=== PATIENT | male | born 1945 | race Caucasian/White ===

== ENCOUNTER 2019-06-10 11:45 | Outpatient (CLI) | payer MEDICARE, OTHER, SELFPAY ==
[2019-06-10 13:14] LABS: Anion Gap 9.7 mmol/L (3-11); BUN 21 mg/dL (7-18); CO2 27.3 mmol/L (21.0-32.0); CREATININE 1.08 mg/dL (0.70-1.30); Calcium 9.3 mg/dL (8.5-10.1); Calculated LDL 111 mg/dL; Chloride 102 mmol/L (98-107); Cholesterol 199 mg/dL (<200); Glucose 117 mg/dL (74-106); HDL Cholesterol 77 mg/dL (40-60); Potassium 4.5 mmol/L (3.5-5.1); Sodium 139 mmol/L (136-145); Triglyceride 58 mg/dL (<150)
== END 2019-06-10 12:05 ==
PROVIDERS: PCP Internal Medicine; Visit Provider Internal Medicine
DX: I10 Essential (primary) hypertension (principal)
CPT/HCPCS: 36415; 80048; 80061

== ENCOUNTER 2021-01-12 02:02 | Outpatient (CLI) | payer MEDICARE, OTHER, SELFPAY ==
--- NOTE | 2021-01-12 08:00 | DI.CT_ITS ---
Exam(s) CT HEAD WO EXAM: CT HEAD WO CLINICAL HISTORY: memory loss,COGNITIVE COMPLAINTS,R41.9. TECHNIQUE: Imaging Protocol: Axial computed tomography images with coronal and sagittal reformatted images were created and reviewed COMPARISON: No exams were available for comparison FINDINGS: Ventricles and Extra axial spaces: Normal in size and morphology for the patient's age. Hemorrhage: None. Cerebral parenchyma: Normal. No significant atrophy or visible white matter changes. Midline shift: None. Brainstem/Cerebellum: Normal. Calvarium: Normal. Visualized Paranasal sinuses/Mastoids: Clear. Soft Tissues: Unremarkable. IMPRESSION: No acute intracranial process. RADIATION DOSE DELIVERED: 709.66mGy.cm Total DLP DATA REPOSITORY: All CT scans at this facility are submitted to the National Radiology Data Registry (NRDR) Dose Index Registry (DIR) with the [employer] ([employer]). RADIATION OPTIMIZATION: All CT scans at this facility use at least one of these dose optimization te chniques: automated exposure control; mA and/or kV adjustment per patient size (includes targeted exa ms where dose is matched to clinical indication); or iterative reconstruction.
== END 2021-01-12 02:22 ==
PROVIDERS: PCP Internal Medicine; Visit Provider Internal Medicine
DX: R41.3 Other amnesia (principal); R41.9 Unspecified symptoms and signs involving cognitive functions and awareness
CPT/HCPCS: 70450

== ENCOUNTER → 2021-02-13 08:48 | Outpatient (BNVA) | payer MEDICARE, OTHER, SELFPAY | PROVIDERS: PCP Internal Medicine; Referring Provider Internal Medicine; Visit Provider Nurse Practitioner Adult Health | DX: R41.3 Other amnesia (principal); I10 Essential (primary) hypertension; F41.9 Anxiety disorder, unspecified | CPT/HCPCS: 99204; 99205; G2212 ==

== ENCOUNTER 2021-02-14 01:35 | Outpatient (CLI) | payer MEDICARE, OTHER, SELFPAY ==
--- NOTE | 2021-02-14 15:02 | DI.RAD_ITS ---
Exam(s) XR EYE FOREIGN BODY EXAM: XR EYE FOREIGN BODY INDICATION: Clearance for MRI - hx metal fragment exposure FOREIGN BODY EYE,T15.90XA. COMPARISON: No exams were available for comparison TECHNIQUE: 2D digital imaging was performed. FINDINGS: No orbital foreign bodies are seen. There is no evidence of fracture. No suspicious bony lesions. No sinus air-fluid levels. IMPRESSION: No orbital foreign body. DATA REPOSITORY: RADIATION DOSE DELIVERED:
== END 2021-02-14 01:55 ==
PROVIDERS: PCP Internal Medicine; Visit Provider Nurse Practitioner Adult Health
DX: T15.90XA Foreign body on external eye, part unspecified, unspecified eye, initial encounter (principal); R41.3 Other amnesia; Z87.820 Personal history of traumatic brain injury; X58.XXXA Exposure to other specified factors, initial encounter; E78.00 Pure hypercholesterolemia, unspecified; I10 Essential (primary) hypertension; R73.01 Impaired fasting glucose; R41.9 Unspecified symptoms and signs involving cognitive functions and awareness; E55.9 Vitamin D deficiency, unspecified; F41.9 Anxiety disorder, unspecified
CPT/HCPCS: 36415; 80053; 80061; 82306; 85027; 70030; 82607; 84443; 86140

== ENCOUNTER 2021-02-14 04:03 | Outpatient (CLI) | payer MEDICARE, OTHER, SELFPAY ==
[2021-02-14 14:45] LABS: MCH 31.9 pg (27.0-33.0); MCV 91.1 fL (80-95); MPV 9.2 fL (8.0-11.0); Platelet Count 230 10^3/uL (130-400); RBC 4.39 10^6/uL (4.36-5.78); RDW 12.6 % (11.8-14.1); RDW-SD 42.4 fL
[2021-02-14 15:44] LABS: ALT 25 U/L (16-63); AST 20 U/L (15-37); Alkaline Phosphatase 73 U/L (46-116); Anion Gap 10.9 mmol/L (3-11); BUN 22 mg/dL (7-18); Bilirubin, Total 0.8 mg/dL (0.2-1.0); CO2 26.1 mmol/L (21.0-32.0); CREATININE 1.2 mg/dL (0.70-1.30); Calcium 8.8 mg/dL (8.5-10.1); Calculated LDL 106 mg/dL (<100); Chloride 101 mmol/L (98-107); Cholesterol 203 mg/dL (<200); Estimated GFR 59.18 (mL/min/1.73m2); Glucose 121 mg/dL (74-106); HDL Cholesterol 77 mg/dL (40-60); Potassium 4.1 mmol/L (3.5-5.1); Sodium 138 mmol/L (136-145); TSH 1.78 uIU/mL (0.36-3.74); Total Protein 7.3 g/dL (6.4-8.2); Triglyceride 101 mg/dL (<150); Vitamin B12 571 pg/mL (193-986)
[2021-02-14 15:59] LABS: C-Reactive Protein < 0.05 mg/dL (0.0-0.3)
[2021-02-16 01:27] LABS: Vitamin D 25 Total 41.2 ng/mL (30-100)
== END 2021-02-14 04:04 | disposition home or self-care (01) ==
PROVIDERS: PCP Internal Medicine; Visit Provider Internal Medicine
DX: E78.00 Pure hypercholesterolemia, unspecified (principal); I10 Essential (primary) hypertension; R41.9 Unspecified symptoms and signs involving cognitive functions and awareness; R73.01 Impaired fasting glucose; E55.9 Vitamin D deficiency, unspecified; F41.9 Anxiety disorder, unspecified
CPT/HCPCS: 36415; 80053; 80061; 82306; 85027; 82607; 84443; 86140

== ENCOUNTER → 2021-02-28 10:03 | Outpatient (BNVA) | payer MEDICARE, OTHER, SELFPAY | PROVIDERS: PCP Internal Medicine; Referring Provider Internal Medicine; Visit Provider Nurse Practitioner Adult Health | DX: G30.1 Alzheimer's disease with late onset (principal); F02.80 Dementia in other diseases classified elsewhere, unspecified severity, without behavioral disturbance, psychotic disturbance, mood disturbance, and anxiety | CPT/HCPCS: 99213; 99215 ==

== ENCOUNTER → 2021-04-26 10:11 | Outpatient (BNVA) | payer MEDICARE, OTHER, SELFPAY | PROVIDERS: PCP Internal Medicine; Referring Provider Internal Medicine; Visit Provider Psychiatry & Neurology Neurology | DX: G30.1 Alzheimer's disease with late onset (principal); F02.80 Dementia in other diseases classified elsewhere, unspecified severity, without behavioral disturbance, psychotic disturbance, mood disturbance, and anxiety | CPT/HCPCS: 99213 ==

== ENCOUNTER → 2021-07-11 08:54 | Outpatient (BNVA) | payer MEDICARE, OTHER, SELFPAY | PROVIDERS: PCP Internal Medicine; Visit Provider Psychiatry & Neurology Neurology | DX: G30.1 Alzheimer's disease with late onset (principal); F02.80 Dementia in other diseases classified elsewhere, unspecified severity, without behavioral disturbance, psychotic disturbance, mood disturbance, and anxiety; F41.9 Anxiety disorder, unspecified | CPT/HCPCS: 99213 ==

== ENCOUNTER → 2021-08-15 08:41 | Outpatient (BNVA) | payer MEDICARE, OTHER, SELFPAY | PROVIDERS: PCP Internal Medicine; Referring Provider Internal Medicine; Visit Provider Nurse Practitioner Adult Health | DX: G30.1 Alzheimer's disease with late onset (principal); F02.80 Dementia in other diseases classified elsewhere, unspecified severity, without behavioral disturbance, psychotic disturbance, mood disturbance, and anxiety | CPT/HCPCS: 99214 ==

== ENCOUNTER 2021-12-31 20:02 | Emergency (ER) | payer MEDICARE, OTHER, SELFPAY ==
[2021-12-31] VITALS (69 sets, daily range): BP systolic 109–131; BP diastolic 64–80; PULSE 82–94; RESP 12–31; TEMP 36.9–37; O2SAT 91–100
--- NOTE | 2021-12-31 20:00 | RT.EKG_ITS ---
APPROVED REPORT Exam: Resting ECG Reason for Exam: dizzy Patient Location: E HR:88 bpm ECG Measurements Heart Rate 88 AXIS OR 167 P 72 QRSd 104 QRS -43 QT 389 T 81 QTc 470 Conclusion Sinus rhythm...normal P axis, V-rate 60- 99 Incomplete RBBB and LAFB...axis(240,-40), S>R II III aVF Physician: Sinus rhythm, rate 88, incomplete right bundle branch block. No significant ST elevations or depressions. No evidence of STEMI. No prior EKG for comparison.
--- NOTE | 2021-12-31 20:10 | DI.CT_ITS ---
Exam(s) CT CHEST/ABD/PEL WO EXAM: CT CHEST/ABD/PEL WO CLINICAL HISTORY: syncope, fall, hit left ribs, chest compressions. TECHNIQUE: Imaging Protocol: Axial computed tomography images with coronal and sagittal reformatted images were created and reviewed CONTRAST MATERIAL: Intravenous: none Oral: None COMPARISON: No exams were available for comparison FINDINGS: CHEST: LUNGS: No infiltrates nor pleural effusions. No pneumothorax. No lung contusion. No significant fo maryam findings in the trachea and mainstem bronchi. MEDIASTINUM: No evidence of mediastinal hematoma. No hilar nor mediastinal adenopathy. Visualized t hyroid unremarkable. CARDIAC: Heart size is normal. There is no pericardial effusion.Diameter of the ascending thoracic a chen is 3.7 cm. Mid aortic arch diameter 2.7 cm. Proximal descending thoracic aorta diameter is inc reased at 3.1 cm. Diameter of the mid thoracic aorta is 2.8 cm. Diameter of the distal thoracic aor ta is 2.7 cm. OSSEOUS: There is nondisplaced fracture in the posterior aspect of the left 10th rib at the costotran sverse junction. Similar very subtle nondisplaced fracture of the posterior left rib of T11 also not ed.. ABDOMEN: There is no ascites. LIVER: No obvious focal hepatic laceration or other focal hepatic lesions evident on this noninfused study. GALLBLADDER/BILIARY: No obvious gallbladder pathology. CBD is not dilated. PANCREAS: No evidence of obvious pancreatic mass nor dilatation of the pancreatic duct. SPLEEN: Spleen size normal. No evidence of obvious splenic laceration nor intrasplenic lesions. No perisplenic fluid ADRENALS: There are no significant adrenal masses. KIDNEYS: No calculi nor hydronephrosis. No obvious solid renal masses. Mild prominence of both ureter s entire length. No distal ureteral calculi nor obvious bladder mass evident. ABDOMINAL AORTA: Calcified but not significantly enlarged. LYMPH NODES: There is no retroperitoneal nor para-aortic adenopathy. ABDOMINAL WALL/GI: No evidence of significant anterior abdominal wall nor inguinal hernia. No evidence of bowel obstruction. No evidence of bowel wall nor mesenteric hematoma. PELVIS: LYMPH NODES: There is no intrapelvic nor inguinal adenopathy. GI: No evidence of appendicitis.Sigmoid diverticulosis. No evidence of acute diverticulitis. URINARY BLADDER: No masses nor calculi nor clots therein. REPRODUCTIVE: Prostate gland enlarged and indents the bladder base. Seminal vesicles unremarkable. OSSEOUS: No compression fractures of the vertebral bodies. There is an element of degenerative anter olisthesis of L4 upon L5, this related to facet arthropathy. IMPRESSION: 1. There are nondisplaced fractures of the posterior aspect of the left 10th and 11th ribs, these at the costotransverse junctions. 2. No evidence of focal lung findings, pneumothorax, or pleural effusion. 3. No evidence of significant injury in the abdomen pelvis. No free fluid. Extensive sigmoid diverticulosis incidentally noted.. No obvious acute diverticulitis. RADIATION DOSE DELIVERED: 873.03 mGy.cm Total DLP DATA REPOSITORY: All CT scans at this facility are submitted to the National Radiology Data Registry (NRDR) Dose Index Registry (DIR) with the [employer] ([employer]). RADIATION OPTIMIZATION: All CT scans at this facility use at least one of these dose optimization te chniques: automated exposure control; mA and/or kV adjustment per patient size (includes targeted exa ms where dose is matched to clinical indication); or iterative reconstruction.
[2021-12-31] MEDS: Normal Saline 1,000 ML 1000 ML IV (20:20)
[2021-12-31 20:23] LABS: Abs Immature Grans 0.04 10^3/uL (0.0-0.06); Absolute Basophil Count 0.06 10^3/uL (0.0-0.2); Absolute Eosinophil Count 0.03 10^3/uL (0.0-0.7); Absolute Lymphocyte Count 0.87 10^3/uL (1.2-3.4); Absolute Monocyte Count 1.46 10^3/uL (0.1-0.8); Absolute Neutrophil Count 7.53 10^3/uL (1.2-6.7); Basophils % 0.6; Eosinophils % 0.3; HCT 36.8 % (40.0-50.0); HGB 12.7 g/dL (13.5-17.5); Immature Grans % 0.4; Lymphocytes % 8.7; MCH 31.9 pg (27.0-33.0); MCHC 34.5 % (32.0-36.0); MCV 93 fL (80-95); MPV 9.2 fL (8.0-11.0); Monocytes % 14.6; Neutrophils % 75.4; Platelet Count 172 10^3/uL (130-400); RBC 3.98 10^6/uL (4.36-5.78); RDW 12.7 % (11.8-14.1); RDW-SD 42.9 fL; WBC 9.99 10^3/uL (4.4-10.8)
--- NOTE | 2021-12-31 20:26 | W.ED.GENAD ---
Discharge Plan Disposition Patient Disposition: HOME Condition: Good Discharge Details Clinical Impression: Syncope, Dehydration, KHRIS (acute kidney injury), Left rib fracture Primary Care Provider: Angella Faith ED Provider: Jose Guadalupe Pearce Home Meds and New Rx's Prescriptions: Continued donepezil 10 mg tablet 10 mg PO DAILY Qty: 90 3RF bupropion HCl [Wellbutrin XL] 300 mg tablet extended release 24 hr 300 mg PO QAM Qty: 90 3RF memantine 10 mg tablet 10 mg PO BID Qty: 180 3RF amlodipine 10 mg tablet 10 mg PO DAILY Qty: 90 3RF Discharge Instructions Instructions: Dehydration (ED), Syncope (ED) Additional Instructions: At this time your work-up is reassuring. I feel that your symptoms occurred secondary to being notably dehydrated. For the next 48 hours please stay well-hydrated, drink 10 to 12 cups of fluid per day. I would recommend water and electrolyte solutions. Take things easy, do not overly exert yourself over the next day or two. If you notice any worsening of your symptoms, or any new symptoms such as vomiting, diarrhea, fever, chills, shortness of breath, chest pain, numbness, weakness, or fainting , please return immediately to the emergency department for reevaluation. Please follow up with your primary care provider as soon as possible for reassessment and reevaluation. As always, it was a pleasure participating in your medical care today. Referrals: Angella Faith MD [Primary Care Provider] - Medical Decision Making This is a 76-year-old male with a past medical history of mild dementia, hypertension, dehydration in the past, who presents today after syncope. Patient mowed the lawn today, he may have had some alcohol and [facility] He got up out of his chair after sitting for a bit he had an episode of syncope. He may have struck his head. He then tried to get up a second time and passed out again shortly thereafter. Bystander CPR was initiated when he was sat upright and he was noticed to bradycardia down. Only 3-4 compressions were given total. When EMS arrived blood pressure and heart rate was stable however when he was sat upright again he again became near syncopal and his heart rate went down as did his blood pressure 2. He is not on any blood thinners. He was answering all questions appropriately to EMS. He does not recall the syncope but does state that he feels fine now. Family is at bedside. Patient does admit to some mild left-sided chest pain, but denies any neck pain, back pain, or abdominal pain. He denies any new numbness or tingling. No other complaints. Exam demonstrates normal neurologic assessment at this time. Notably dry mucous membranes, mild left-sided tenderness but no bruising or crepitus. No midline cervical thoracic or lumbar spine tenderness. Differential is highest for syncope/vasovagal event secondary to dehydration, however with his age and risk factors stroke bleed is also on the differential. Cardiac etiology is of concern too. We will rehydrate, monitor closely evaluate for these etiologies and reassess. 11:[address] imaging has returned. No evidence of significant abnormality. He does have a few small broken ribs on the left, but no pneumothorax or other significant abnormalities. He does have atherosclerotic disease, but no signs of acute stroke at this time. After 2-1/2 L of normal saline the patient is feeling much better. Initial lab demonstrate an elevated creatinine of 1.8, and normal troponin. Repeat labs after fluid rehydration demonstrate normalizing creatinine at 1.4, GFR is now up to 50%, repeat troponin normal. EKGs are stable and unchanged. No evidence of STEMI. Patient feels well, feels good to go home. Family is at bedside they will be helping him at home if needed. Symptoms at this time appear to be consistent with a vasovagal event secondary to dehydration. At this time symptoms appearing consistent with stroke, or significant cardiac dysrhythmia. Patient will be discharged home with family. Patient is able to ambulate well at time of discharge. Repeat exam demonstrates no evidence of acute neurologic defecit. I have extensively reviewed the treatment plan and discharge instructions with the patient and their family. I have addressed all patient concerns at this time. The patient and family was made aware of what symptoms to monitor for that would warrant a return to the emergency department. Discussed the plan with the patient and family, they demonstrate verbal understanding and agreement with our assessment and plan at this time. The documentation in this chart was dictated using [employer] dictation software. Please excuse any dictation errors. EKG 20: 10 Sinus rhythm, rate 88, incomplete right bundle branch block. No significant ST elevations or depressions. No evidence of STEMI. No prior EKG for comparison. FINDINGS: Brain: There is mild diffuse heterogeneity of the white matter attenuation, consistent with chronic white matter microangiopathic ischemic changes. There is mild diffuse cerebral atrophy present. There is no evidence of intracranial hemorrhage. There is no evidence of acute intracranial injury or other pathologic process. Cerebral ventricles: The ventricular system demonstrates mild diffuse compensatory enlargement. Paranasal sinuses: Mucoperiosteal thickening consistent with chronic sinusitis. Opacification of the ethmoid sinuses and air-fluid level within the left sphenoid sinus may represent acute on chronic sinusitis. Mastoid air cells: The mastoid aircells are normal. Orbital cavities: There is no evidence of retro-bulbar hemorrhage. There is no evidence of globe or lens injury. Bones/joints: The orbits are normal without evidence of fracture. The bony cranium shows no evidence of injury or other acute pathologic processes. Soft tissues: There may be a small scalp hematoma at the left frontal region. There may be a small scalp hematoma within the left occipital region. Other findings: There is no evidence of an acute ischemic event. IMPRESSION: 1. No evidence of an acute intracranial abnormality. 2. There is mild age-related atrophy and chronic white matter ischemic changes, with compensatory ventricular dilation. 3. Mucoperiosteal thickening consistent with chronic sinusitis. Opacification of the ethmoid sinuses and air-fluid level within the left sphenoid sinus may represent acute on chronic sinusitis. 4. There may be a small scalp hematoma at the left frontal region. There may be a small scalp hematoma within the left occipital region. FINDINGS: Bones/joints: There is no evidence of acute vertebral body element or posterior vertebral element fracture. The anterior posterior borders of the vertebral bodies are in good alignment. No evidence of acute subluxation. No evidence of acute compression fractures. Discs/Spinal canal/Neural foramina: There are moderate to severe degenerative changes within the discs of the of the cervical spine. There is sclerosis anterior and posterior osteophytes. Mild-tomoderate neurforaminal narrowing secondary to degenerative changes present greater on the left than the right. Lpli-dm-zugkbnbu narrowing of the central spinal canal secondary to degenerative changes. There is posterior ngmm-qb-tqsinywa bulging of the discs at C4-C5, C5-C6 and C6-C7. This likely is secondary to chronic degenerative disc disease a possibly limited acute disc injury cannot be totally excluded. The spinal canal and cord are otherwise normal. Lungs: Left apical pleural scarring present. The right lung is not imaged. Lymph nodes: Bilateral cervical lymphadenopathy present. Soft tissues: The prevertebal, paravertebral, pharyngeal, hypopharyngeal, and laryngeal soft tissue structures are unremarkable. IMPRESSION: 1. There is no evidence of acute vertebral body element or posterior vertebral element fracture. 2. The anterior posterior borders of the vertebral bodies are in good alignment. No evidence of acute subluxation. 3. There are moderate to severe degenerative changes within the discs of the of the cervical spine. There is sclerosis anterior and posterior osteophytes. 4. Zqon-jo-zoduusrz neurforaminal narrowing secondary to degenerative changes present greater on the left than the right. 5. Yeng-ep-kphjbehr narrowing of the central spinal canal secondary to degenerative changes. 6. There is posterior aowm-nt-qevvvtvs bulging of the discs at C4-C5, C5-C6 and C6-C7. This likely is secondary to chronic degenerative disc disease a possibly limited acute disc injury cannot be totally excluded. 7. Bilateral cervical lymphadenopathy present. Thank you for allowing us to participate in the care of your patient. Dictated and Authenticated by: Elvin Fermin MD 12/31/2021 9:43 PM Eastern Time ([place] & [place]) FINDINGS: Lungs: No infiltrates. No mass lesion or nodule seen. Mild right lung base dependent atelectasis. Pleural spaces: Unremarkable. No pneumothorax. No pleural effusion. Heart: Unremarkable. No cardiomegaly. No pericardial effusion. Lymph nodes: Unremarkable. No enlarged lymph nodes. Vasculature: Unremarkable. No aortic aneurysm. Bones/joints: Acute nondisplaced fracture of left posterior 10th and 11th ribs. No evidence of clavicular fracture. No evidence of scapular fracture. No evidence of sternal fracture. Degenerative changes in the spine. No evidence of fracture. Soft tissues: Unremarkable. IMPRESSION Acute nondisplaced fracture of left posterior 10th and 11th ribs. No pneumothorax. No evidence of lung injur FINDINGS: Liver: Normal. No mass. Gallbladder and bile ducts: Normal. No calcified stones. No ductal dilation. Pancreas: Normal. No ductal dilation. Spleen: Normal. No splenomegaly. Adrenal glands: Normal. No mass. Kidneys and ureters: Normal. No hydronephrosis. Stomach and bowel: Colonic diverticulosis. No findings to suggest acute diverticulitis. No areas of bowel wall thickening in the colon. No evidence of obstruction. Appendix: No evidence of appendicitis. Intraperitoneal space: No free fluid or fluid collections. No inflammatory changes. No free air. Vasculature: Unremarkable. No abdominal aortic aneurysm. Lymph nodes: Unremarkable. No enlarged lymph nodes. Urinary bladder: Unremarkable as visualized. Reproductive: Unremarkable as visualized. Bones/joints: Facet arthropathy at multiple levels. 5 mm degenerative anterolisthesis of L4 over L5. Degenerative changes are seen at L4-L5 and L5-S1 level. Soft tissues: Unremarkable. IMPRESSION: 1. No evidence of visceral organ or vascular injury. No hemoperitoneum.. 2. Colonic diverticulosis.No pericolonic inflammatory changes to suggest acute diverticulitis. Thank you for allowing us to participate in the care of your patient. Dictated and Authenticated by: Lana Null MD 12/31/2021 9:34 PM Eastern Time ([place] & [place]) FINDINGS: Bones/joints: Vertebral body heights are within normal limits. No evidence of compression fracture. No evidence of acute fracture. Discs/Spinal canal/Neural foramina: No disc protrusion or extrusion. Soft tissues: Unremarkable. IMPRESSION: Vertebral body heights are within normal limits. No evidence of compression fracture. No evidence of acute fracture. FINDINGS: Bones/joints: Vertebral body heights are within normal limits. No evidence of compression fracture. No evidence of acute fracture. Discs/Spinal canal/Neural foramina: 5 mm degenerative anterolisthesis of L4 over L5 with bilateral facet arthropathy with moderate bilateral neural foraminal narrowing. Degenerative disc disease at L5-S1 with loss of disc height and 4 mm posterior osteophytosis. No significant canal stenosis. No disc protrusion or extrusion. Soft tissues: Unremarkable. IMPRESSION: Vertebral body heights are within normal limits. No evidence of compression fracture. No evidence of acute fracture. Thank you for allowing us to participate in the care of your patient. Dictated and Authenticated by: Lana Null MD 12/31/2021 9:40 PM Eastern Time ([place] & [place]) HPI General Date/Time Provider Initiated Documentation: 12/31/21 20:10. HPI Narrative: This is a 76-year-old male with a past medical history of mild dementia, hypertension, dehydration in the past, who presents today after syncope. Patient mowed the lawn today, he may have had some alcohol and was currently at a backyard [facility]. He got up out of his chair after sitting for a bit he had an episode of syncope. He may have struck his head. He then tried to get up a second time and passed out again shortly thereafter. Bystander CPR was initiated when he was sat upright and he was noticed to bradycardia down. Only 3-4 compressions were given total. When EMS arrived blood pressure and heart rate was stable however when he was sat upright again he again became near syncopal and his heart rate went down as did his blood pressure 2. He is not on any blood thinners. He was answering all questions appropriately to EMS. He does not recall the syncope but does state that he feels fine now. Family is at bedside. Patient does admit to some mild left-sided chest pain, but denies any neck pain, back pain, or abdominal pain. He denies any new numbness or tingling. No other complaints. Related Data Home Medications Medication Instructions Recorded Confirmed amlodipine 10 mg tablet 10 mg PO DAILY #90 tab-caps 12/02/20 12/31/21 donepezil 10 mg tablet 10 mg PO DAILY #90 tabs 04/26/21 12/31/21 memantine 10 mg tablet 10 mg PO BID #180 tabs 08/15/21 12/31/21 bupropion HCl 300 mg 24 hr tablet, 300 mg PO QAM #90 tabs 12/26/21 12/31/21 extended release (Wellbutrin XL) Previous Rx's Medication Instructions Recorded amlodipine 10 mg tablet 10 mg PO DAILY #90 tab-caps 12/02/20 donepezil 10 mg tablet 10 mg PO DAILY #90 tabs 04/26/21 memantine 10 mg tablet 10 mg PO BID #180 tabs 08/15/21 bupropion HCl 300 mg 24 hr tablet, 300 mg PO QAM #90 tabs 12/26/21 extended release (Wellbutrin XL) Allergies Allergy/AdvReac Type Severity Reaction Status Date / Time SB Inhibitors Allergy Intermediate Swelling/Ed Verified 12/31/21 20:16 taniya Sulfa (Sulfonamide Allergy Unknown rash Verified 12/31/21 20:16 Antibiotics) General Stated Complaint: Dizzy/Sync CAROL: 2 Review of Systems All systems reviewed & are unremarkable except as noted in HPI and below PFSH All Active Problems (Updated 12/31/21 @ 23:47 by Jose Guadalupe Pearce DO) Syncope (Chronic) Dehydration (Acute) KHRIS (acute kidney injury) (Acute) Left rib fracture (Acute) 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 Surgical History H/O left cataract extraction 09/21/20 with insertion of intraocular lens [facility] [place] [facility] Family History Mother Hyperlipidemia Hypothyroid Sister Parathyroid abnormality Hyperlipidemia Brother Hyperlipidemia Hypothyroid Father Lung cancer Social History Smoking/Tobacco Use Status: Former Tobacco Use Tobacco: How many years used: 4 Smoking risk assessment performed?: Yes Alcohol Intake: current Alcohol Intake frequency: 0-2 drinks per day Alcohol type: wine Drug use: Never Substance use type: does not use Household members: spouse Housing: house Number of Children: 2 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[employer] - [employer] What is your relationship status?: How often do you talk on the phone with friends or family?: three or more times per week Panel score (0-1 are the most socially isolated patients): 2 What type of physical activity do you participate in: walking Seatbelt use: always Drive intox or ride w/intox driver wheelchair: No Working smoke detector in home: Yes Carbon monox detector in home: Yes Do you feel safe at home: Yes Do you feel safe in your relationship?: Yes Exam Narrative Exam Narrative: 1.Const: Well-nourished, Well-developed, appearing stated age 2.Eyes: PERRL, no conjunctival injection, and symmetrical lids. 3.ENT: Atraumatic external nose and ears. Notably dry MM. Neck: Symmetric, trachea midline, No thyromegaly. There is no evidence of raccoon eyes, tran sign, CSF rhinorrhea, mastoid tenderness, cranial crepitus, hemotympanum, exophthalmos, or hyphema. Patient demonstrates intact dentition with no signs of tooth avulsion or fracture, no signs of jaw deformity, no evidence of a LeFort's fracture, with an intact palate, nose and orbital region. There is no evidence of a nasal septal hematoma. No proptosis. Jaw closes symmetrically. Airway is clear. 4.CVS: +S1/S2, No murmurs or gallops. Peripheral pulses 2+ and equal in all extremities. Brisk capillary refill in all extremities. 5.RESP: Unlabored respiratory effort. Clear to auscultation bilaterally. No wheezes rales or rhonchi. mild tenderness in the left lower ribs. 6.GI: Soft, Nontender/Nondistended, No hepatosplenomegaly. No guarding or rebound. 7.MSK: Normocephalic/Atraumatic, Extremities w/o deformity or ttp No cyanosis or clubbing, Normal movement of all extremities 8.Skin: Warm, Dry. No rashes or lesions. 9.Neuro: evp marketing II-XII grossly intact. Sensation grossly intact, no focal neurologic deficits. No dysdiadochokinesia or dysmetria. No facial asymmetry. 10.Psych: (AAO) x2. Appropriate mood and affect. Patient does believe it is 2 Course Vital Signs Vital signs: Vital Signs Temperature 37.0 C 12/31/21 20:04 Pulse 87 12/31/21 20:04 Respiratory Rate 19 12/31/21 20:04 Blood Pressure 130/76 12/31/21 20:04 Pulse Oximetry 100 12/31/21 20:04 Temperature 37.0 C 12/31/21 20:04 Temperature Source Skin 12/31/21 20:04 Pulse 87 12/31/21 20:04 Respiratory Rate 17 12/31/21 20:07 Respiratory Effort Non-Labored 12/31/21 20:07 Respiratory Depth Normal 12/31/21 20:07 Respiratory Pattern Normal 12/31/21 20:07 Blood Pressure 130/76 12/31/21 20:04 Blood Pressure Position Supine 12/31/21 20:04 Pulse Oximetry 100 12/31/21 20:04 Oxygen Delivery Method Room Air 12/31/21 20:04 Oxygen Flow Rate 0 12/31/21 20:04 Lab/Test Results Lab/Test Results: Laboratory Tests Range/Units 12/31/21 20:16 WBC (4.4-10.8) 10^3/uL 9.99 RBC (4.36-5.78) 10^6/uL 3.98 L Hgb (13.5-17.5) g/dL 12.7 L Hct (40.0-50.0) % 36.8 L MCV (80-95) fL 93 MCH (27.0-33.0) pg 31.9 MCHC (32.0-36.0) % 34.5 RDW (11.8-14.1) % 12.7 Plt Count (130-400) 10^3/uL 172 MPV (8.0-11.0) fL 9.2 Immature Gran % 0.4 Neutrophils % 75.4 Lymphocytes % 8.7 Monocytes % 14.6 Eosinophils % 0.3 Basophils % 0.6 Nucleated RBC % (0.0-0.3) % 0.0 Absolute Neutrophils (1.2-6.7) 10^3/uL 7.53 H Absolute Lymphocytes (1.2-3.4) 10^3/uL 0.87 L Absolute Monocytes (0.1-0.8) 10^3/uL 1.46 H Absolute Eosinophils (0.0-0.7) 10^3/uL 0.03 Absolute Basophils (0.0-0.2) 10^3/uL 0.06 PAWSS Have you Been Recently Intoxicated or Drunk Within the Last 30 days?: No Have you Ever Experienced Previous Episodes of Alcohol Withdrawal?: Unable to Obtain Have you ever Experienced Withdrawal Seizures?: Unable to Obtain Have you ever Experienced Delirium Tremens(DT)s?: Unable to Obtain Have you ever undergone Alcohol Rehabilitation Treatment (i.e, inpt ot outpatient treatment programs)?: Unable to Obtain Have you ever Experienced Blackouts?: Unable to Obtain Have you ever Combined Alcohol with other Downers within the last 90 days?: Unable to Obtain Have you ever Combined Alcohol with any other Substance of Abuse during the last 90 days?: Unable to Obtain Positive Blood Alcohol level on Presentation? [PCS.BAL]: Unable to Obtain Evidence of Increased Autonomic Activity (i.e. HR>120, tremor, sweating, agitation, nausea)?: Unable to Obtain Result: 0
[2021-12-31 20:39] LABS: ALT 18 U/L (16-63); AST 20 U/L (15-37); Albumin 3.6 g/dL (3.4-5.0); Alkaline Phosphatase 66 U/L (46-116); Anion Gap 11.3 mmol/L (3-11); BUN 27 mg/dL (7-18); Bilirubin, Total 0.7 mg/dL (0.2-1.0); CO2 22.7 mmol/L (21.0-32.0); CREATININE 1.8 mg/dL (0.70-1.30); Calcium 8.3 mg/dL (8.5-10.1); Chloride 101 mmol/L (98-107); ETHANOL BLOOD 12.3 mg/dL (<10); Estimated GFR 36.97 (mL/min/1.73m2); Glucose 101 mg/dL (74-106); Potassium 3.9 mmol/L (3.5-5.1); Sodium 135 mmol/L (136-145); Total Protein 6.8 g/dL (6.4-8.2); Troponin I < 50 ng/L (<or=60)
--- NOTE | 2021-12-31 20:42 | DI.CT_ITS ---
Exam(s) CT THORACIC LUMBAR SPINE REC EXAM: CT THORACIC LUMBAR SPINE REC CLINICAL HISTORY: fall, syncope, hit head and back, no focal tendern TECHNIQUE: COMPARISON: CT CT CHEST/ABD/PEL WO from 12/31/2021 FINDINGS: THORACIC SPINAL COLUMN: No evidence of acute fracture nor listhesis. No facet joint malalignment. N o acute compromise of the spinal canal. Multilevel calcification in the anterior longitudinal ligame nt in the lower thoracic spinal column is noted. LUMBOSACRAL SPINAL COLUMN: No evidence of acute fracture. There is degenerative anterolisthesis of L 4 upon L5, with approximately millimeters anterior slippage of L4 upon L5, this related to facet arth ropathy. There are no pars defects. Moderate disc space narrowing noted at this level. There is an element of bilateral foraminal stenosis at L4-5 level. Also moderate-severe disc space narrowing at L5-S1 levels. No listhesis at this level. Annular bulg ing noted IMPRESSION: No evidence of acute fractures in the thoracic and lumbar spinal columns. There is degenerative ante rolisthesis of L4 upon L5, as described above. This is related to facet arthropathy.
--- NOTE | 2021-12-31 21:15 | DI.CT_ITS ---
Exam(s) CT HEAD CERVICAL SPINE WO EXAM: CT HEAD CERVICAL SPINE WO CLINICAL HISTORY: fall, syncope, hit head, eval for bleed. TECHNIQUE: Imaging Protocol: Axial computed tomography images with coronal and sagittal reformatted images were created and reviewed COMPARISON: CT CT HEAD WO from 01/12/2021 FINDINGS: BRAIN: There are no prominent scalp hematomas. There are no skull fractures nor fluid in the visualized paranasal sinuses. There is no evidence of intracranial hemorrhage, mass effect, or shift of midline structures. There are no extra-axial fluid collections. The ventricles are not enlarged or shifted and there is no blo od within the ventricular system nor within the basal cisterns. Mucosal thickening noted in left maxillary sinus with no associated fluid level. Also some mucosal t hickening noted in the left sphenoid sinus. Frontal sinuses are clear. Mastoid air cells are clear. CERVICAL SPINE: There is no evidence of fracture nor listhesis. No significant prevertebral soft tissue swelling. There is multilevel chronic disc space narrowing at C4-5, C5-6, and C6-7 levels. Also bilateral Lusc hka joint osteophytes at C5-6 and C6-7 levels. Multilevel degenerative changes in the facet joints. No facet malalignment. There is no significant facet joint malalignment. No significant osseous lesions evident. Heavy calcification is noted in the deep subcutaneous fat just dorsal to the supraspinous ligament at C4-5 level. IMPRESSION: No acute intracranial findings on this noninfused CT scan of the brain. No evidence of cervical spine fracture, malalignment, nor acute compromise of the cervical spinal can al. Multilevel degenerative changes in the cervical spine as described above. RADIATION DOSE DELIVERED: 1,138.99mGy.cm Total DLP DATA REPOSITORY: All CT scans at this facility are submitted to the National Radiology Data Registry (NRDR) Dose Index Registry (DIR) with the [employer] ([employer]). RADIATION OPTIMIZATION: All CT scans at this facility use at least one of these dose optimization te chniques: automated exposure control; mA and/or kV adjustment per patient size (includes targeted exa ms where dose is matched to clinical indication); or iterative reconstruction.
--- NOTE | 2021-12-31 21:35 | DI.VRAD_ITS ---
PROCEDURE INFORMATION: Exam: CT Chest Without Contrast; Diagnostic Exam date and time: 12/31/2021 9:07 PM Age: 76 years old Clinical indication: Injury or trauma; Luq; Blunt trauma (contusions or hematomas); Injury date: 12/31/21; Injury details: Syncope, fall, hit left ribs, chest compressions TECHNIQUE: Imaging protocol: Diagnostic computed tomography of the chest without contrast. 3D rendering (Not supervised by radiologist): MIP and/or 3D reconstructed images were created by the technologist. Radiation optimization: All CT scans at this facility use at least one of these dose optimization techniques: automated exposure control; mA and/or kV adjustment per patient size (includes targeted exams where dose is matched to clinical indication); or iterative reconstruction. COMPARISON: CT HEAD CERVICAL SPINE WO 12/31/2021 9:02 PM FINDINGS: Lungs: No infiltrates. No mass lesion or nodule seen. Mild right lung base dependent atelectasis. Pleural spaces: Unremarkable. No pneumothorax. No pleural effusion. Heart: Unremarkable. No cardiomegaly. No pericardial effusion. Lymph nodes: Unremarkable. No enlarged lymph nodes. Vasculature: Unremarkable. No aortic aneurysm. Bones/joints: Acute nondisplaced fracture of left posterior 10th and 11th ribs. No evidence of clavicular fracture. No evidence of scapular fracture. No evidence of sternal fracture. Degenerative changes in the spine. No evidence of fracture. Soft tissues: Unremarkable. IMPRESSION: Acute nondisplaced fracture of left posterior 10th and 11th ribs. No pneumothorax. No evidence of lung injury. PROCEDURE INFORMATION: Exam: CT Abdomen And Pelvis Without Contrast Exam date and time: 12/31/2021 9:07 PM Age: 76 years old Clinical indication: Injury or trauma; Luq; Blunt trauma (contusions or hematomas); Injury date: 12/31/21; Injury details: Syncope, fall, hit left ribs, chest compressions TECHNIQUE: Imaging protocol: Computed tomography of the abdomen and pelvis without contrast. 3D rendering (Not supervised by radiologist): MIP and/or 3D reconstructed images were created by the technologist. Radiation optimization: All CT scans at this facility use at least one of these dose optimization techniques: automated exposure control; mA and/or kV adjustment per patient size (includes targeted exams where dose is matched to clinical indication); or iterative reconstruction. COMPARISON: No relevant prior studies available. FINDINGS: Liver: Normal. No mass. Gallbladder and bile ducts: Normal. No calcified stones. No ductal dilation. Pancreas: Normal. No ductal dilation. Spleen: Normal. No splenomegaly. Adrenal glands: Normal. No mass. Kidneys and ureters: Normal. No hydronephrosis. Stomach and bowel: Colonic diverticulosis. No findings to suggest acute diverticulitis. No areas of bowel wall thickening in the colon. No evidence of obstruction. Appendix: No evidence of appendicitis. Intraperitoneal space: No free fluid or fluid collections. No inflammatory changes. No free air. Vasculature: Unremarkable. No abdominal aortic aneurysm. Lymph nodes: Unremarkable. No enlarged lymph nodes. Urinary bladder: Unremarkable as visualized. Reproductive: Unremarkable as visualized. Bones/joints: Facet arthropathy at multiple levels. 5 mm degenerative anterolisthesis of L4 over L5. Degenerative changes are seen at L4-L5 and L5-S1 level. Soft tissues: Unremarkable. IMPRESSION: 1. No evidence of visceral organ or vascular injury. No hemoperitoneum.. 2. Colonic diverticulosis.No pericolonic inflammatory changes to suggest acute diverticulitis. Dictated and Authenticated by: Lana Null MD. Ordering:SUKHDEEP Shi MD
--- NOTE | 2021-12-31 21:41 | DI.VRAD_ITS ---
PROCEDURE INFORMATION: Exam: CT Thoracic Spine Without Contrast Exam date and time: 12/31/2021 9:07 PM Age: 76 years old Clinical indication: Injury or trauma; Blunt trauma (contusions or hematomas); Injury date: 12/31/21; Injury details: Fall, syncope, hit head and back, no focal tendern TECHNIQUE: Imaging protocol: Computed tomography of the thoracic spine without contrast. Radiation optimization: All CT scans at this facility use at least one of these dose optimization techniques: automated exposure control; mA and/or kV adjustment per patient size (includes targeted exams where dose is matched to clinical indication); or iterative reconstruction. COMPARISON: CT HEAD CERVICAL SPINE WO 12/31/2021 9:02 PM FINDINGS: Bones/joints: Vertebral body heights are within normal limits. No evidence of compression fracture. No evidence of acute fracture. Discs/Spinal canal/Neural foramina: No disc protrusion or extrusion. Soft tissues: Unremarkable. IMPRESSION: Vertebral body heights are within normal limits. No evidence of compression fracture. No evidence of acute fracture. PROCEDURE INFORMATION: Exam: CT Lumbar Spine Without Contrast Exam date and time: 12/31/2021 9:07 PM Age: 76 years old Clinical indication: Injury or trauma; Blunt trauma (contusions or hematomas); Injury date: 12/31/21; Injury details: Fall, syncope, hit head and back, no focal tendern TECHNIQUE: Imaging protocol: Computed tomography of the lumbar spine without contrast. Radiation optimization: All CT scans at this facility use at least one of these dose optimization techniques: automated exposure control; mA and/or kV adjustment per patient size (includes targeted exams where dose is matched to clinical indication); or iterative reconstruction. COMPARISON: No relevant prior studies available. FINDINGS: Bones/joints: Vertebral body heights are within normal limits. No evidence of compression fracture. No evidence of acute fracture. Discs/Spinal canal/Neural foramina: 5 mm degenerative anterolisthesis of L4 over L5 with bilateral facet arthropathy with moderate bilateral neural foraminal narrowing. Degenerative disc disease at L5-S1 with loss of disc height and 4 mm posterior osteophytosis. No significant canal stenosis. No disc protrusion or extrusion. Soft tissues: Unremarkable. IMPRESSION: Vertebral body heights are within normal limits. No evidence of compression fracture. No evidence of acute fracture. Dictated and Authenticated by: Lana Null MD. Ordering:SUKHDEEP Shi MD
--- NOTE | 2021-12-31 21:43 | DI.VRAD_ITS ---
PROCEDURE INFORMATION: Exam: CT Head Without Contrast Exam date and time: 12/31/2021 9:02 PM Age: 76 years old Clinical indication: Injury or trauma; Fall; Blunt trauma (contusions or hematomas); Sprain or strain, cervical ligaments; Patient HX: Trauma, loc TECHNIQUE: Imaging protocol: Computed tomography of the head without contrast. Radiation optimization: All CT scans at this facility use at least one of these dose optimization techniques: automated exposure control; mA and/or kV adjustment per patient size (includes targeted exams where dose is matched to clinical indication); or iterative reconstruction. COMPARISON: CT HEAD WO 01/12/2021 1:58 PM FINDINGS: Brain: There is mild diffuse heterogeneity of the white matter attenuation, consistent with chronic white matter microangiopathic ischemic changes. There is mild diffuse cerebral atrophy present. There is no evidence of intracranial hemorrhage. There is no evidence of acute intracranial injury or other pathologic process. Cerebral ventricles: The ventricular system demonstrates mild diffuse compensatory enlargement. Paranasal sinuses: Mucoperiosteal thickening consistent with chronic sinusitis. Opacification of the ethmoid sinuses and air-fluid level within the left sphenoid sinus may represent acute on chronic sinusitis. Mastoid air cells: The mastoid aircells are normal. Orbital cavities: There is no evidence of retro-bulbar hemorrhage. There is no evidence of globe or lens injury. Bones/joints: The orbits are normal without evidence of fracture. The bony cranium shows no evidence of injury or other acute pathologic processes. Soft tissues: There may be a small scalp hematoma at the left frontal region. There may be a small scalp hematoma within the left occipital region. Other findings: There is no evidence of an acute ischemic event. IMPRESSION: 1. No evidence of an acute intracranial abnormality. 2. There is mild age-related atrophy and chronic white matter ischemic changes, with compensatory ventricular dilation. 3. Mucoperiosteal thickening consistent with chronic sinusitis. Opacification of the ethmoid sinuses and air-fluid level within the left sphenoid sinus may represent acute on chronic sinusitis. 4. There may be a small scalp hematoma at the left frontal region. There may be a small scalp hematoma within the left occipital region. PROCEDURE INFORMATION: Exam: CT Cervical Spine Without Contrast Exam date and time: 12/31/2021 9:02 PM Age: 76 years old Clinical indication: Injury or trauma; Fall; Blunt trauma (contusions or hematomas); Sprain or strain, cervical ligaments; Patient HX: Trauma, loc TECHNIQUE: Imaging protocol: Computed tomography of the cervical spine without contrast. Radiation optimization: All CT scans at this facility use at least one of these dose optimization techniques: automated exposure control; mA and/or kV adjustment per patient size (includes targeted exams where dose is matched to clinical indication); or iterative reconstruction. COMPARISON: CT HEAD WO 01/12/2021 1:58 PM FINDINGS: Bones/joints: There is no evidence of acute vertebral body element or posterior vertebral element fracture. The anterior posterior borders of the vertebral bodies are in good alignment. No evidence of acute subluxation. No evidence of acute compression fractures. Discs/Spinal canal/Neural foramina: There are moderate to severe degenerative changes within the discs of the of the cervical spine. There is sclerosis anterior and posterior osteophytes. Cccr-up-jhchzhvo neurforaminal narrowing secondary to degenerative changes present greater on the left than the right. Touz-oj-vgqykxeu narrowing of the central spinal canal secondary to degenerative changes. There is posterior kabj-qe-hnwxtylc bulging of the discs at C4-C5, C5-C6 and C6-C7. This likely is secondary to chronic degenerative disc disease a possibly limited acute disc injury cannot be totally excluded. The spinal canal and cord are otherwise normal. Lungs: Left apical pleural scarring present. The right lung is not imaged. Lymph nodes: Bilateral cervical lymphadenopathy present. Soft tissues: The prevertebal, paravertebral, pharyngeal, hypopharyngeal, and laryngeal soft tissue structures are unremarkable. IMPRESSION: 1. There is no evidence of acute vertebral body element or posterior vertebral element fracture. 2. The anterior posterior borders of the vertebral bodies are in good alignment. No evidence of acute subluxation. 3. There are moderate to severe degenerative changes within the discs of the of the cervical spine. There is sclerosis anterior and posterior osteophytes. 4. Xdft-ys-ydkwqkvq neurforaminal narrowing secondary to degenerative changes present greater on the left than the right. 5. Ulzd-tm-lfdukpyh narrowing of the central spinal canal secondary to degenerative changes. 6. There is posterior bppj-nl-izzirccl bulging of the discs at C4-C5, C5-C6 and C6-C7. This likely is secondary to chronic degenerative disc disease a possibly limited acute disc injury cannot be totally excluded. 7. Bilateral cervical lymphadenopathy present. Dictated and Authenticated by: Elvin Fermin MD. Ordering:SUKHDEEP Shi MD
--- NOTE | 2021-12-31 21:45 | RT.EKG_ITS ---
APPROVED REPORT Exam: Resting ECG Reason for Exam: syncope Patient Location: E HR:88 bpm ECG Measurements Heart Rate 88 AXIS VT 166 P 45 QRSd 104 QRS -100 QT 400 T 65 QTc 484 Conclusion Sinus rhythm...normal P axis, V-rate 60- 99 Incomplete RBBB and LAFB...axis(240,-40), S>R II III aVF Nonspecific T abnormalities, lateral leads...T <-0.10mV, I aVL V5 V6 Physician: no stemi, unchanged from prior ekg today. stable
[2021-12-31] MEDS: Normal Saline 500 ML IV (21:50)
[2021-12-31] MEDS: Ibuprofen 800 MG TAB PO (22:04)
[2021-12-31] MEDS: Lidocaine 5% Patch 1 PATCH TP (22:04)
[2021-12-31] MEDS: Acetaminophen 500 MG TAB 1000 MG PO (22:04)
[2021-12-31 22:58] LABS: Anion Gap 10.4 mmol/L (3-11); BUN 23 mg/dL (7-18); CO2 23.6 mmol/L (21.0-32.0); CREATININE 1.4 mg/dL (0.70-1.30); Calcium 8.2 mg/dL (8.5-10.1); Chloride 104 mmol/L (98-107); Estimated GFR 49.41 (mL/min/1.73m2); Glucose 116 mg/dL (74-106); Potassium 3.7 mmol/L (3.5-5.1); Sodium 138 mmol/L (136-145)
[2021-12-31 23:08] LABS: Troponin I < 50 ng/L (<or=60)
== END 2021-12-31 23:58 | disposition home or self-care (01) ==
PROVIDERS: Emergency Provider Student in an Organized Health Care Education/Training Program; PCP Internal Medicine
DX: R55 Syncope and collapse (principal); I10 Essential (primary) hypertension; R07.9 Chest pain, unspecified; I45.4 Nonspecific intraventricular block; E86.0 Dehydration; N17.9 Acute kidney failure, unspecified; S22.42XA Multiple fractures of ribs, left side, initial encounter for closed fracture; W19.XXXA Unspecified fall, initial encounter
CPT/HCPCS: 71250; 80048; 80053; 93005; 96360; 96361; 99285; 70450; 72125; 74176; 80320; 84484; 85025; 93010; 99284

== ENCOUNTER → 2022-03-05 08:31 | Outpatient (BNVA) | payer MEDICARE, OTHER, SELFPAY | PROVIDERS: PCP Internal Medicine; Referring Provider Internal Medicine; Visit Provider Nurse Practitioner Adult Health | DX: G30.1 Alzheimer's disease with late onset (principal); F02.80 Dementia in other diseases classified elsewhere, unspecified severity, without behavioral disturbance, psychotic disturbance, mood disturbance, and anxiety | CPT/HCPCS: 99213; 99214 ==

== ENCOUNTER 2022-09-11 03:37 | Outpatient (CLI) | payer MEDICARE, OTHER, SELFPAY ==
[2022-09-11 09:30] LABS: Anion Gap 9.4 mmol/L (3-11); BUN 18 mg/dL (7-18); CO2 29.6 mmol/L (21.0-32.0); CREATININE 1.1 mg/dL (0.70-1.30); Calcium 9.1 mg/dL (8.5-10.1); Calculated LDL 117 mg/dL (<100); Chloride 100 mmol/L (98-107); Cholesterol 217 mg/dL (<200); Estimated GFR 69.57 (mL/min/1.73m2); Glucose 113 mg/dL (74-106); HDL Cholesterol 86 mg/dL (40-60); Potassium 3.8 mmol/L (3.5-5.1); Sodium 139 mmol/L (136-145); Triglyceride 74 mg/dL (<150)
== END 2022-09-11 03:38 | disposition home or self-care (01) ==
PROVIDERS: PCP Nurse Practitioner Adult Health; Referring Provider Internal Medicine; Visit Provider Internal Medicine
DX: E78.00 Pure hypercholesterolemia, unspecified (principal); I10 Essential (primary) hypertension
CPT/HCPCS: 36415; 80048; 80061

== ENCOUNTER → 2022-09-25 09:30 | Outpatient (BNVA) | payer MEDICARE, SELFPAY | PROVIDERS: PCP Nurse Practitioner Adult Health; Visit Provider Nurse Practitioner Adult Health | DX: G30.1 Alzheimer's disease with late onset (principal); F02.80 Dementia in other diseases classified elsewhere, unspecified severity, without behavioral disturbance, psychotic disturbance, mood disturbance, and anxiety | CPT/HCPCS: 99212; 99213 ==

== ENCOUNTER 2023-05-07 11:54 | Emergency (ER) | payer MEDICARE, SELFPAY ==
[2023-05-07 12:12] VITALS: BP 122/61; PULSE 100; RESP 20; TEMP 36.2; O2SAT 99
--- NOTE | 2023-05-07 12:15 | RT.EKG_ITS ---
APPROVED REPORT Exam: Resting ECG Reason for Exam: confusion Patient Location: E HR:103 bpm ECG Measurements Heart Rate 103 AXIS GA 185 P 57 QRSd 95 QRS -56 QT 355 T 66 QTc 466 Conclusion Sinus tachycardia...rate> 99 Left anterior fascicular block...axis(240,-40), init forces inf Physician: no stemi
--- NOTE | 2023-05-07 12:15 | DI.CT_ITS ---
Exam(s) CT HEAD WO EXAM: CT HEAD WO CLINICAL HISTORY: acute confusion, syncope. TECHNIQUE: Imaging Protocol: Axial computed tomography images with coronal and sagittal reformatted images were created and reviewed COMPARISON: CT CT HEAD CERVICAL SPINE WO from 12/31/2021 FINDINGS: Ventricles and Extra axial spaces: Normal in size and morphology for the patient's age. Hemorrhage: None. Cerebral parenchyma: There are areas of decreased attenuation in the white matter consistent with sma ll vessel ischemic disease. Midline shift: None. Brainstem/Cerebellum: Normal. Calvarium: Normal. Visualized Paranasal sinuses/Mastoids: Mucous retention cyst or polyp in the left maxillary sinus. T here is mild mucosal thickening in the left maxillary sinus. Soft Tissues: Vascular calcifications are present. IMPRESSION: 1. No acute intracranial process. 2. Findings were discussed with the emergency department at 12:57 p.m. on 05/07/2023. RADIATION DOSE DELIVERED: Total DLP DATA REPOSITORY: All CT scans at this facility are submitted to the National Radiology Data Registry (NRDR) Dose Index Registry (DIR) with the [employer] ([employer]). RADIATION OPTIMIZATION: All CT scans at this facility use at least one of these dose optimization te chniques: automated exposure control; mA and/or kV adjustment per patient size (includes targeted exa ms where dose is matched to clinical indication); or iterative reconstruction.
--- NOTE | 2023-05-07 12:17 | DI.RAD_ITS ---
Exam(s) XR CHEST 1V IN DI DEPT EXAM: XR CHEST 1V IN DI DEPT CLINICAL HISTORY: suspect covid, confusion, cough TECHNIQUE: 2D digital imaging was performed of the chest. One image was obtained. An AP view was ob tained. COMPARISON: No exams were available for comparison FINDINGS: MEDIASTINUM: Normal. HEART: Normal. PULMONARY VASCULATURE: Normal. LUNGS: Clear. PLEURAL SPACE: No pleural effusion or pneumothorax. BONE:Within normal limits for the patient's age. OTHER FINDINGS:Normal. IMPRESSION: No acute pulmonary findings. DATA REPOSITORY: RADIATION DOSE DELIVERED:
[2023-05-07 12:47] LABS: Abs Immature Grans 0.07 10^3/uL (0.0-0.06); Absolute Basophil Count 0.06 10^3/uL (0.0-0.2); Absolute Eosinophil Count 0.04 10^3/uL (0.0-0.7); Absolute Lymphocyte Count 0.29 10^3/uL (1.2-3.4); Absolute Monocyte Count 1.22 10^3/uL (0.1-0.8); BE (Venous) 2 mmol/L (-2-3); Basophils % 0.4; Eosinophils % 0.3; HCO3 (Venous) 27 mmol/L (23-28); HCT 42.7 % (40.0-50.0); HGB 14.7 g/dL (13.5-17.5); Immature Grans % 0.5; MCH 31.1 pg (27.0-33.0); MCHC 34.4 % (32.0-36.0); MCV 91 fL (80-95); MPV 8.8 fL (8.0-11.0); Monocytes % 8.4; Neutrophils % 88.4; O2 Sat (Venous) 48 %; Platelet Count 230 10^3/uL (130-400); RBC 4.72 10^6/uL (4.36-5.78); RDW 12.1 % (11.8-14.1); RDW-SD 40.6 fL; TCO2 (Venous) 25 mmol/L (24-29); WBC 14.54 10^3/uL (4.4-10.8); pCO2 (Venous) 50 mmHg (41-51); pH (Venous) 7.35 (7.31-7.41); pO2 (Venous) 26 mmHg
[2023-05-07 12:48] LABS: Absolute Neutrophil Count 12.85 10^3/uL (1.2-6.7)
[2023-05-07] MEDS: Normal Saline 500 ML IV (12:50)
[2023-05-07 13:14] LABS: ALT 20 U/L (16-63); AST 17 U/L (15-37); Albumin 4.4 g/dL (3.4-5.0); Alkaline Phosphatase 99 U/L (46-116); Anion Gap 9.6 mmol/L (3-11); BUN 22 mg/dL (7-18); CO2 26.4 mmol/L (21.0-32.0); CREATININE 1.2 mg/dL (0.70-1.30); Calcium 9.5 mg/dL (8.5-10.1); Chloride 98 mmol/L (98-107); Estimated GFR 62.29 (mL/min/1.73m2); Glucose 108 mg/dL (74-106); Potassium 4.1 mmol/L (3.5-5.1); Sodium 134 mmol/L (136-145); TSH (W/Ref FT4) 3.37 uIU/mL (0.36-3.74); Total Protein 8.2 g/dL (6.4-8.2); Troponin I < 50 ng/L (<or=60)
--- NOTE | 2023-05-07 13:29 | ED.GENADUL_ITS ---
Discharge Plan Disposition Patient Disposition: Home Discharge Details Clinical Impression: COVID-19, Syncope Primary Care Provider: Kelly Man ED Provider: Jose Guadalupe Pearce Home Meds and New Rx's Prescriptions: No Action bupropion HCl 150 mg tablet extended release 24 hr 150 mg PO QAM Qty: 90 3RF Rx Instructions: Dose reduction 01/24/23 mirtazapine 7.5 mg tablet 7.5 mg PO QHS Qty: 90 3RF Rx Instructions: New medication 01/2023 for mood & appetite donepezil 10 mg tablet 10 mg PO DAILY Qty: 90 3RF amlodipine 10 mg tablet 10 mg PO DAILY Qty: 90 3RF sildenafil (pulm.hypertension) 20 mg tablet 20 mg PO DAILY PRN (Reason: sexual activity) Qty: 30 1RF Rx Instructions: Take 1 hr prior to intercourse for erectile dysfunction memantine 10 mg tablet 10 mg PO BID Qty: 180 3RF Discharge Instructions Instructions: Syncope (ED), COVID-19 (Coronavirus Disease 2019) (ED) Additional Instructions: At this time your work-up has returned very reassuring. Your CAT scan shows no signs of stroke or bleed. Your chest x-ray shows no pneumonia. Your electrolytes are stable and your renal function is good. Your heart work-up shows no signs of heart attack. Your COVID test is positive. I suspect that COVID, mild dehydration, brought about your symptoms of syncope/unresponsiveness earlier today. Please stay well-hydrated. Please rest. Please take the Paxlovid as directed on the package. Do not take your sildenafil while taking Paxlovid. Please cut down your amlodipine dose to 5 mg daily while taking Paxlovid. You can then resume normal dose after you completed the Paxlovid prescription. If you notice any worsening of your symptoms, or any new symptoms such as vomiting, diarrhea, fever, chills, shortness of breath, chest pain, numbness, weakness, or fainting , please return immediately to the emergency department for reevaluation. Please follow up with your primary care provider as soon as possible for reassessment and reevaluation. As always, it was a pleasure participating in your medical care today. Referrals: Kelly Man, [employer] [Primary Care Provider] - Medical Decision Making 78-year-old male with a past medical history of high cholesterol, early onset Alzheimer's dementia, presents today for evaluation of syncope/confusion. is at bedside and states that she is currently getting over COVID. She stated that today he did not feel well and he was having some trouble focusing, there is a brief episode where he was very out of it for a few minutes. This resolved with time but he continues to demonstrate more confusion than normal. He has had a runny nose for the last day or so. He has been weak as well. No significant cough. No vomiting or diarrhea. No falls or trauma to the head. No other complaints at this time. Patient does not add anything historically and does seem quite pleasantly confused at the time. Exam demonstrates well-appearing male, lungs are clear, vital signs stable aside from mild tachycardia. Heart rate 100. No focal neurologic deficit. Patient is definitely pleasantly confused at this time. Does follow commands but not well. Suspect mild dehydration mild viral etiology causing current symptoms, however differential still does include a less likely stroke or cardiac etiology. Will evaluate for pneumonia, gently rehydrate, check for flu and COVID, monitor closely and reassess. EKG shows no evidence of STEMI. 2:14 PM On reassessment the patient is doing well. He still remains pleasantly confused. Laboratory work-up demonstrates mildly elevated white count of 14, mild left shift, no bandemia. VBG normal with no evidence of hypercarbia. Electrolytes stable, renal function good, troponin normal, thyroid function normal, COVID is positive. Influenza and RSV are negative. Chest x-ray negative for infiltrate. CT scan of the head negative for stroke. Patient otherwise looks well and stable. I suspect an episode of syncope secondary to his COVID infection brought about the earlier symptoms today and continued mild confusion. We will start the patient on Paxlovid in the meantime. We are pending urinalysis still. 2:45 PM Patient was not willing to pee. We did attempt Palacios catheterization but this did not go well, patient was notably noncompliant. I had a long discussion with the patient's , and through shared decision-making process we decided to ho ld off on urinalysis at this time as his clinical signs and symptoms appear to be notably clinically consistent with COVID, and clinically inconsistent with urinary tract infection. We will start the patient on Paxlovid, and recommend close return follow-up if his symptoms worsen. I have extensively reviewed the treatment plan and discharge instructions with the patient and their family. I have addressed all patient concerns at this time. The patient and family was made aware of what symptoms to monitor for that would warrant a return to the emergency department. Discussed the plan with the patient and family, they demonstrate verbal understanding and agreement with our assessment and plan at this time. The documentation in this chart was dictated using [email or web address] dictation software. Please excuse any dictation errors. FINDINGS: MEDIASTINUM: Normal. HEART: Normal. PULMONARY VASCULATURE: Normal. LUNGS: Clear. PLEURAL SPACE: No pleural effusion or pneumothorax. BONE:Within normal limits for the patient's age. OTHER FINDINGS:Normal. IMPRESSION: No acute pulmonary findings. FINDINGS: Ventricles and Extra axial spaces: Normal in size and morphology for the patie nt's age. Hemorrhage: None. Cerebral parenchyma: There are areas of decreased attenuation in the white matter consistent with small vessel ischemic disease. Midline shift: None. Brainstem/Cerebellum: Normal. Calvarium: Normal. Visualized Paranasal sinuses/Mastoids: Mucous retention cyst or polyp in the left maxillary sinus. There is mild mucosal thickening in the left maxillary sinus. Soft Tissues: Vascular calcifications are present. IMPRESSION: 1. No acute intracranial process. 2. Findings were discussed with the emergency department at 12:57 p.m. on 05/07/2023. HPI General Date/Time Provider Initiated Documentation: 05/07/23 11:59 . HPI Narrative: 78-year-old male with a past medical history of high cholesterol, early onset Alzheimer's dementia, presents today for evaluation of syncope/confusion. is at bedside and states that she is currently getting over COVID. She stated that today he did not feel well and he was having some trouble focusing, there is a brief episode where he was very out of it for a few minutes. This resolved with time but he continues to demonstrate more confusion than normal. He has had a runny nose for the last day or so. He has been weak as well. No significant cough. No vomiting or diarrhea. No falls or trauma to the head. No other complaints at this time. Patient does not add anything historically and does seem quite pleasantly confused at the time. Related Data Home Medications Medication Instructions Recorded Confirmed sildenafil (pulm.hypertension) 20 20 mg PO DAILY PRN sexual activity 06/29/22 05/07/23 mg tablet #30 tab-caps donepezil 10 mg tablet 10 mg PO DAILY #90 tabs 09/25/22 05/07/23 amlodipine 10 mg tablet 10 mg PO DAILY #90 tab-caps 11/02/22 05/07/23 memantine 10 mg tablet 10 mg PO BID #180 tabs 11/20/22 05/07/23 bupropion HCl 150 mg 24 hr tablet, 150 mg PO QAM #90 tabs 03/28/23 05/07/23 extended release mirtazapine 7.5 mg tablet 7.5 mg PO QHS #90 tabs 03/28/23 05/07/23 Previous Rx's Medication Instructions Recorded sildenafil (pulm.hypertension) 20 20 mg PO DAILY PRN sexual activity 06/29/22 mg tablet #30 tab-caps donepezil 10 mg tablet 10 mg PO DAILY #90 tabs 09/25/22 amlodipine 10 mg tablet 10 mg PO DAILY #90 tab-caps 11/02/22 memantine 10 mg tablet 10 mg PO BID #180 tabs 11/20/22 bupropion HCl 150 mg 24 hr tablet, 150 mg PO QAM #90 tabs 03/28/23 extended release mirtazapine 7.5 mg tablet 7.5 mg PO QHS #90 tabs 03/28/23 Allergies Allergy/AdvReac Type Severity Reaction Status Date / Time SB Inhibitors Allergy Intermediate Swelling/Ed Verified 05/07/23 12:12 taniya Sulfa (Sulfonamide Allergy Unknown rash Verified 05/07/23 12:12 Antibiotics) General Stated Complaint: [employer] CAROL: 3 Review of Systems All systems reviewed & are unremarkable except as noted in HPI and below PFSH All Active Problems (Updated 05/07/23 @ 14:18 by Jose Guadalupe Pearce DO) Syncope (Chronic) COVID-19 (Acute) Weight loss, unintentional (Acute) Excessive cerumen in right ear canal (Acute) Anxiety (Acute 03/19/13) Elevated fasting blood sugar (Acute 03/20/16) 115 in 2015 Hypertension, essential (Acute 11/24/12) Pure hypercholesterolemia (Acute 03/20/16) Abnormal auditory perception (Acute) Temporomandibular joint click (Acute) Macular pucker (Chronic) Dementia of the Alzheimer's type (Acute ~2019) Drug-induced tardive dystonia (Chronic ~07/2021) Medical History Cognitive complaints Memory deficit Neck strain Localized pain to rt of C6, C7 (possibly T1-2), x 1 mo since reaching to save cat and falling into brush. Raised prostate specific antigen (03/19/13) Surgical History H/O left cataract extraction 09/21/20 with insertion of intraocular lens [facility] Family History Mother Hyperlipidemia Hypothyroid Sister Parathyroid abnormality Hyperlipidemia Brother Hyperlipidemia Hypothyroid Father Lung cancer Social History Smoking/Tobacco Use Status: Former Tobacco Use Tobacco: How many years used: 4 Smoking risk assessment performed?: Yes Alcohol Intake: current Alcohol Intake frequency: 0-2 drinks per day Alcohol type: wine Drug use: Never Substance use type: does not use Household members: spouse Housing: house Number of Children: 2 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 - [employer] What is your relationship status?: How often do you talk on the phone with friends or family?: three or more times per week Panel score (0-1 are the most socially isolated patients): 2 What type of physical activity do you participate in: walking Seatbelt use: always Drive intox or ride w/intox p d driver: No Working smoke detector in home: Yes Carbon monox detector in home: Yes Do you feel safe at home: Yes Do you feel safe in your relationship?: Yes Exam Narrative Exam Narrative: 1.Const: Well-nourished, Well-developed, appearing stated age 2.Eyes: PERRL, no conjunctival injection, and symmetrical lids. 3.ENT: Atraumatic external nose and ears. Moist MM. Neck: Symmetric, trachea midline, No thyromegaly. 4.CVS: +S1/S2, No murmurs or gallops. Peripheral pulses 2+ and equal in all extremities. Brisk capillary refill in all extremities. 5.RESP: Unlabored respiratory effort. Clear to auscultation bilaterally. No wheezes rales or rhonchi 6.GI: Soft, Nontender/Nondistended, No hepatosplenomegaly. No guarding or rebound. 7.MSK: Normocephalic/Atraumatic, Extremities w/o deformity or ttp No cyanosis or clubbing, Normal movement of all extremities 8.Skin: Warm, Dry. No rashes or lesions. 9.Neuro: school photographs detailer II-XII grossly intact. Sensation grossly intact, no focal neurologic deficits. Patient is able to ambulate well but slowly. Does not completely follow all commands appropriately. 10.Psych: (AAO) x0. Appropriate mood and affect GCS of 15 Course Vital Signs Vital signs: Vital Signs Temperature 36.2 C L 05/07/23 12:12 Pulse 100 H 05/07/23 12:12 Respiratory Rate 20 05/07/23 12:12 Blood Pressure 122/61 05/07/23 12:12 Pulse Oximetry 99 05/07/23 12:12 Temperature 36.2 C L 05/07/23 12:12 Pulse 100 H 05/07/23 12:12 Respiratory Rate 20 05/07/23 12:12 Respiratory Effort Normal 05/07/23 12:20 Respiratory Depth Normal 05/07/23 12:20 Respiratory Pattern Normal 05/07/23 12:20 Blood Pressure 122/61 05/07/23 12:12 Blood Pressure Position Sitting 05/07/23 12:12 Pulse Oximetry 99 05/07/23 12:12 Oxygen Delivery Method Room Air 05/07/23 12:12 Oxygen Flow Rate 0 05/07/23 12:12 Lab/Test Results Lab/Test Results: Laboratory Tests Range/Units 05/07/23 12:38 WBC (4.4-10.8) 10^3/uL 14.54 H RBC (4.36-5.78) 10^6/uL 4.72 Hgb (13.5-17.5) g/dL 14.7 Hct (40.0-50.0) % 42.7 MCV (80-95) fL 91 MCH (27.0-33.0) pg 31.1 MCHC (32.0-36.0) % 34.4 RDW (11.8-14.1) % 12.1 Plt Count (130-400) 10^3/uL 230 MPV (8.0-11.0) fL 8.8 Immature Gran % 0.5 Neutrophils % 88.4 Lymphocytes % 2.0 Monocytes % 8.4 Eosinophils % 0.3 Basophils % 0.4 Nucleated RBC % (0.0-0.3) % 0.0 Absolute Neutrophils (1.2-6.7) 10^3/uL 12.85 H Absolute Lymphocytes (1.2-3.4) 10^3/uL 0.29 L Absolute Monocytes (0.1-0.8) 10^3/uL 1.22 H Absolute Eosinophils (0.0-0.7) 10^3/uL 0.04 Absolute Basophils (0.0-0.2) 10^3/uL 0.06 VBG pH (7.31-7.41) 7.35 VBG pCO2 (41-51) mmHg 50 VBG pO2 mmHg 26 VBG HCO3 (23-28) mmol/L 27 VBG Total CO2 (24-29) mmol/L 25 VBG O2 Saturation % 48 VBG Base Excess (-2-3) mmol/L 2 Sodium (136-145) mmol/L 134 L Potassium (3.5-5.1) mmol/L 4.1 Chloride (98-107) mmol/L 98 Carbon Dioxide (21.0-32.0) mmol/L 26.4 Anion Gap (3-11) mmol/L 9.6 BUN (7-18) mg/dL 22 H Creatinine (0.70-1.30) mg/dL 1.2 Est GFR (CKD-EPI 2020) (mL/min/1.73m2) 62.29 Glucose (74-106) mg/dL 108 H Calcium (8.5-10.1) mg/dL 9.5 Total Bilirubin (0.2-1.0) mg/dL 1.0 AST (15-37) U/L 17 ALT (16-63) U/L 20 Alkaline Phosphatase (46-116) U/L 99 Troponin I (<or=60) ng/L < 50 Total Protein (6.4-8.2) g/dL 8.2 Albumin (3.4-5.0) g/dL 4.4 TSH (0.36-3.74) uIU/mL 3.37
[2023-05-07 13:37] LABS: Influenza A PCR Negative (Negative); Influenza B PCR Negative (Negative); RSV PCR Negative (Negative)
[2023-05-07 13:42] LABS: Source Nasopharynx
[2023-05-07 13:43] LABS: COVID-19 PCR Positive (Negative)
[2023-05-07] MEDS: Lidocaine 2% Jelly 6 ML SYR (15:12)
[2023-05-07 15:16] LABS: Bilirubin Small (Negative); Blood Moderate (Negative); Clarity Clear (Clear); Glucose Negative (Negative); Ketones 15 mg/dL (Negative); Leukocyte Esterase Negative (Negative); Nitrite Negative (Negative); Specific Gravity >= 1.030 (1.005-1.025)
[2023-05-07 15:26] LABS: Epithelial Cells Negative HPF (Negative); RBC 20-50 HPF (0-2); WBC Negative HPF (0-5)
[2023-05-07 15:27] LABS: Bacteria Negative HPF (Negative); C & S Indicated? No; Casts 0-2 Hyaline LPF (Negative); Crystals Negative HPF (Negative); Mucus Heavy (Negative); Other Cells Few Renal (Negative)
== END 2023-05-07 15:18 | disposition home or self-care (01) ==
PROVIDERS: Emergency Provider Student in an Organized Health Care Education/Training Program; PCP Nurse Practitioner Adult Health
DX: U07.1 COVID-19 (principal); R55 Syncope and collapse; Z11.52 Encounter for screening for COVID-19
CPT/HCPCS: 80053; 82805; 87637; 93005; 96360; 99284; 70450; 71045; 81003; 81015; 84443; 84484; 85025; 93010

== ENCOUNTER → 2023-09-24 08:58 | Outpatient (BNVA) | payer MEDICARE, SELFPAY | PROVIDERS: PCP Nurse Practitioner Adult Health; Visit Provider Nurse Practitioner Adult Health | DX: G30.1 Alzheimer's disease with late onset (principal); F02.80 Dementia in other diseases classified elsewhere, unspecified severity, without behavioral disturbance, psychotic disturbance, mood disturbance, and anxiety | CPT/HCPCS: 99213 ==

== ENCOUNTER → 2024-05-20 10:24 | Outpatient (BNVA) | payer MEDICARE, SELFPAY | PROVIDERS: PCP Nurse Practitioner Adult Health; Referring Provider Nurse Practitioner Adult Health; Visit Provider Podiatrist | DX: L60.3 Nail dystrophy (principal); B35.1 Tinea unguium; L60.2 Onychogryphosis; G30.9 Alzheimer's disease, unspecified | CPT/HCPCS: 99213 ==

== ENCOUNTER → 2024-09-23 10:21 | Outpatient (BNVA) | payer MEDICARE, SELFPAY | PROVIDERS: PCP Nurse Practitioner Adult Health; Referring Provider Nurse Practitioner Adult Health; Visit Provider Podiatrist | DX: L60.3 Nail dystrophy (principal); B35.1 Tinea unguium; L60.2 Onychogryphosis; G30.9 Alzheimer's disease, unspecified; L65.9 Nonscarring hair loss, unspecified; M79.671 Pain in right foot; M79.672 Pain in left foot | CPT/HCPCS: 11719; 11720; 99213 ==

== ENCOUNTER → 2024-12-21 11:32 | Outpatient (BNVA) | payer MEDICARE, SELFPAY | PROVIDERS: PCP Nurse Practitioner Adult Health; Referring Provider Nurse Practitioner Adult Health; Visit Provider Podiatrist | DX: L60.3 Nail dystrophy (principal); B35.1 Tinea unguium; L60.2 Onychogryphosis; M79.674 Pain in right toe(s); M79.675 Pain in left toe(s); G30.9 Alzheimer's disease, unspecified; R09.89 Other specified symptoms and signs involving the circulatory and respiratory systems; L65.9 Nonscarring hair loss, unspecified; R21 Rash and other nonspecific skin eruption; L60.8 Other nail disorders | CPT/HCPCS: 11721 ==

== ENCOUNTER → 2025-03-29 10:58 | Outpatient (BNVA) | payer MEDICARE, SELFPAY | PROVIDERS: PCP Nurse Practitioner Adult Health; Referring Provider Nurse Practitioner Adult Health; Visit Provider Podiatrist | DX: L60.3 Nail dystrophy (principal); B35.1 Tinea unguium; L60.2 Onychogryphosis; M79.674 Pain in right toe(s); M79.675 Pain in left toe(s); L65.9 Nonscarring hair loss, unspecified; L60.8 Other nail disorders | CPT/HCPCS: 11721 ==